=== PATIENT | male | born 1980 | race Caucasian/White ===

== ENCOUNTER 2020-03-16 15:52 | Emergency (ER) | payer OTHER ==
[~2020-03-16] VITALS: Ht 160 cm; Wt 61.2 kg
[2020-03-16] MEDS ORDERED: LISINOPRIL5 MG (16:03)
[2020-03-16 16:41] VITALS: BP 134/72
== END 2020-03-16 16:42 | disposition home or self-care (01) ==
LOC: M.ERS 15:52
DX: T69.1XXA Chilblains, initial encounter (principal); T33.532A Superficial frostbite of left finger(s), initial encounter; I10 Essential (primary) hypertension; X31.XXXA Exposure to excessive natural cold, initial encounter; Y93.89 Activity, other specified; Y92.89 Other specified places as the place of occurrence of the external cause; Y99.8 Other external cause status